=== PATIENT | male | born 1940 | race Caucasian/White ===

== ENCOUNTER → 2017-10-01 | Day surgery (SDC) | payer MEDICARE, OTHER ==
[~2017-10-01] MED LIST: ALEVE220 M1; ASPIRIN81 MG; CARAFATE1 GM/10 ML PO; COD LIVER OIL1 EAC1; DESOXIMETASONE15 G2 TOP; FENTANYL CITRATE/PF 100MCG/2 ML INJ ONE; FLAXSEED1000 MG; GARLIC; GLUCAGON FOR INJ 1 MG VIAL ONE; GLUCOSAMINE1000 MG; HYOSCYAMINE SULFATE 0.5 MG/ML AMP ONE; METOPROLOL TART50 MG PO; MIDAZOLAM HCL 2 MG/2 ML VIAL ONE; MULTI-VITAMIN1 EACH PO; NIZORAL120 ML BLADIN; ONDANSETRON HCL 4 MG ORAL DISINTEGRATING TAB ONE; PHENYLEPHRINE HCL 1% 10 MG/ML VIAL ONE; PROPOFOL IV EMULSION 10 MG/ML 50 ML VIAL ONE; TOPROL XL50 MG PO; VIT C; VITAMIN E400 UNI1; VYTORIN 10-801 EACH; ZANTAC150 MG; [UNRECOGNIZED DRUG - OTHER]
--- OUTSIDE RECORDS SUMMARY | 2017-10-01 07:54 | XMS REPORT | Clinical Summary ---
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 Disp. Refills Start End Date Status Date NAPROXEN SODIUM (ALEVE Take 1 tablet by mouth 2 Active ORAL) (two) times a day as needed. metoprolol succinate XL Take 50 mg by mouth Active (TOPROL-XL) 50 mg 24 hr daily. tablet ezetimibe-simvastatin Take 1 tablet by mouth Active (VYTORIN) 10-80 mg per nightly. tablet ketoconazole (NIZORAL) 2 Apply topically 3 (three) Active % shampoo times a week. Apply to damp skin, lather, leave on 5 minutes, and rinse DESOXIMETASONE TOP Apply topically 2 (two) Active times a day. .05% g, tro face and ear lobes niacin 50 MG tablet Take 50 mg by mouth daily Active with breakfast. aspirin (ECOTRIN) 81 MG Take 81 mg by mouth Active enteric coated tablet daily. sucralfate (CARAFATE) 1 Take 1 g by mouth 2 (two) Active gram tablet times a day. ranitidine (ZANTAC) 150 Take 150 mg by mouth Active MG tablet nightly as needed for heartburn. vitamin E 400 UNIT Take 400 Units by mouth Active capsule daily. ascorbic acid, vitamin C, Take 1,000 mg by mouth Active (VITAMIN C) 500 MG tablet daily. multivitamin (THERAGRAN) Take 1 tablet by mouth Active tablet daily. fluticasone (FLONASE) 50 2 sprays by Each Nare Active mcg/actuation nasal spray route daily as needed for rhinitis. Active Problems Problem Noted Date Coronary artery disease involving barrow coronary artery of barrow heart 04/2017 Encounters Date Type Specialty Care Team Description 04/17/2017 Patient Quality Concepcion Mckeon Outreach 04/14/2017 Hospital Cardiology Bianka Payne MD Coronary artery disease - Encounter involving barrow coronary 04/15/2017 artery of barrow heart, angina presence unspecified 04/14/2017 Procedure Pass Procedural Cardiology 04/14/2017 Surgery Procedural Cardiology Bianka Payne MD Cv left heart cath w lv gram cors [56738 (CPT )] after 09/30/2016 Family History Medical History Relation Name Comments No Known Problems Father Diabetes Mother Relation Name Status Comments Father Mother Social History Tobacco Use Types Packs/Day Years Used Date Current Every Day Smoker Cigars 2 Smokeless Tobacco: Chew Current User Tobacco Cessation: Ready to Quit: Yes Alcohol Use Drinks/Week oz/Week Comments Yes 2 glass weekly Sex Assigned at Date Recorded Not on file Last Filed Vital Signs Vital Sign Reading Time Taken Blood Pressure 145/73 04/15/2017 7:[address] OPERATOR Pulse 63 04/15/2017 7:[address] GRADER OPERATOR Temperature 36.2 C (97.2 F) 04/15/2017 7:[address] GRADER OPERATOR Respiratory Rate 20 04/15/2017 7:[address] GRADER OPERATOR Oxygen Saturation 95% 04/15/2017 7:[address] GRADER OPERATOR Inhaled Oxygen - - Concentration Weight 97.1 kg (214 lb) 04/14/2017 6:[address] GRADER OPERATOR Height 180.3 cm (5' 11") 04/14/2017 6:[address] GRADER OPERATOR Body Mass Index 29.85 04/14/2017 6:[address] GRADER OPERATOR Plan of Treatment Not on file Procedures Procedure Name Priority Date/Time Associated Diagnosis Comments CV LEFT HEART CATH LV Routine 04/14/2017 Coronary artery disease Results for this GRAM WITH CORS 10:[address] GRADER OPERATOR involving barrow coronary procedure are in the artery of barrow heart, results section. angina presence unspecified after 09/30/2016 Results * Cv photographic laboratory technician procedure (04/14/2017 10:32 AM) Specimen Performing Laboratory [facility] [address] [place] [address] Narrative OPERATIVE REPORT PATIENT NAME: ARIC BUTLER ENCOUNTER NO: [id number] DATE OF : 1940 DATE OF ADMISSION: 04/14/2017 DATE OF OPERATION: 04/14/2017 SURGEON: BIANKA PAYNE MD ADMITTING PHYSICIAN: BIANKA PAYNE MD PROCEDURE: Left heart catheterization, left internal mammary and right internal mammary artery cannulation and LV gram. DESCRIPTION OF PROCEDURE: The patient was brought to the photographic laboratory technician.His left and right groins were prepared in normal sterile fashion.A 6-[place] Islander sheath was placed in his right common femoral artery according to the protocol.The first catheter developed was a Nohemi left catheter 6-[place] Islander.We placed a JL4 into the ostium of the left main.The left main was a large vessel, it gave off an LAD and a circumflex.The LAD had a very proximal 90% stenosis followed by a fairly large septal bioinformatics specialist and then there was complete occlusion of the LAD down little further midway down.There was one diagonal that was quite small in the proximal part where the septal bioinformatics specialist was taking off.The left circumflex artery was occluded.We then engaged with a David right catheter.We engaged the ostium of the right coronary artery.It was completely occluded after a short segment of the RCA.We then went up to find what looked like clips in the ramus, we engaged the right internal mammary artery.The right internal mammary artery was a nice big artery.It was anastomosed to what appeared to be a ramus or high OM.It had retrograde filling of what looked like a large dominant left circumflex vessel, it gave off the PDA.There was KIRTI 3 flow throughout the distribution of the left circumflex and the ELISABETH graft appeared normal.We then irrigated the ELISABETH.The ELISABETH attached to the LAD, it was a large vessel connected to an LAD, which retrograde filled the diagonal vessel.There were no significant problems with the ZUNIGA.We then went in with a pigtail catheter, we were able to get the EDP.EDP was registering a little bit high, it was 16 to 18 mmHg.The LVEF was 50% by LV gram.We then did a pullback and there was no hemodynamically significant aortic valve pathology.I suspect that the ischemic defect seen on his PET scan was probably this septal bioinformatics specialist.He is asymptomatic, however, so we will just treat medically for now.The patient will be discharged home the following day since he has had a history of bleeding in the past. [id number] Conf/ / Ref#: [id number] * ECG 12 lead (04/14/2017 6:13 AM) Component Value Ref Range Ventricular rate 59 Atrial rate 59 MA interval 292 QRSD interval 98 QT interval 406 QTC interval 401 P axis 1 46 QRS axis 1 4 T wave axis 63 EKG impression Sinus bradycardia with 1st degree AV block-Otherwise normal ECG-No previous ECGs available- Specimen Performing Laboratory [facility] [address] [place] [address] after 09/30/2016 Insurance Payer Benefit Subscriber ID Type Phone Address Plan / Group MEDICARE MEDICARE xxxxxxxxxx Medicare [place], [place] PART A AND B COMMERCIAL MISC MISC xxxxxx Commercial COMMERCIAL
[2017-10-01 09:00] LABS: BASOPHILS # (AUTO) 0.1 (0.0-0.1); BASOPHILS % 0.7 % (0.0-1.0); EOSINOPHILS # (AUTO) 0.2 (0.0-0.4); EOSINOPHILS % 1.6 % (0.0-6.0); HEMATOCRIT 43.6 % (38.2-49.6); HEMOGLOBIN 14.4 g/dL (14.0-18.0); LYMPHOCYTES # (AUTO) 2.2 (1.0-3.2); LYMPHOCYTES % 20.8 % (18.0-39.1); MEAN CORPUSCULAR HEMOGLOBIN 29.5 pg (28-32); MEAN CORPUSCULAR VOLUME 89.3 fL (81-99); MONOCYTES # (AUTO) 0.7 (0.2-0.8); MONOCYTES % 6.8 % (4.4-11.3); NEUTROPHILS # (AUTO) 7.5 (2.1-6.9); NEUTROPHILS % 69.8 % (38.7-80.0); PLATELET COUNT 294 x10e3/uL (140-360); RED BLOOD COUNT 4.88 x10e6/uL (4.3-5.7); RED CELL DISTRIBUTION WIDTH 13.9 % (11.7-14.4)
--- NOTE | 2017-10-01 14:10 | Operative Report ---
DATE OF PROCEDURE: October 01, 2017 REFERRING PHYSICIAN: Dr. Jason Fajardo PROCEDURES PERFORMED 1. Esophagogastroduodenoscopy with biopsies. 2. Colonoscopy with biopsy. INDICATIONS FOR EGD: Heartburn. INDICATIONS FOR COLONOSCOPY: Colorectal cancer screening and abnormal CT scan. MEDICATION: Patient was done under MAC. Please see anesthesiologist's note. PROCEDURE: With the patient in the left lateral decubitus position, the flexible fiberoptic Olympus gastroscope was introduced into the esophagus under direct visualization without any difficulty. There was some patchy erythema noted in the distal esophagus. A minute tongue of velvety red mucosa was noted to extend proximally from the GE junction. That was biopsied to rule out Carmona's. The scope was then advanced with ease into the stomach, and the mucosa overlying the antrum revealed some diffuse intense erythema, and biopsies were obtained and sent to stain for H. pylori. The mucosa overlying the body was somewhat atrophic, and biopsies were obtained to rule out atrophic gastritis. A minute polyp was noted in the body of the stomach and that was removed per the cold biopsy forceps. The pylorus was of normal contour and shape. It was intubated with ease. The scope was advanced all the way to the 2nd portion of the duodenum. The scope was then withdrawn slowly. Mucosa overlying the proximal 2nd portion and the duodenal bulb appeared to be within normal limits. The scope was then withdrawn back into the stomach. It was retroflexed. The mucosa overlying the fundus and the cardia appeared to be within normal limits. The scope was then straightened out. It was subsequently withdrawn. Patient tolerated the procedure well. IMPRESSION 1. Mild distal esophagitis. 2. Rule out Carmona's esophagus. 3. Rule out atrophic gastritis, biopsied obtained. 4. Gastric polyp, body, excised with cold biopsy forceps. PLAN: Follow up histology. Continue Carafate 1 g p.o. a.c. t.i.d. and H2 priti therapy. The patient was then turned around. After adequate lubrication of the anal canal, a flexible fiberoptic Olympus colonoscope was inserted into the rectum with ease and advanced all the way to the cecum. Prep overall was suboptimal with moderate amount of retained fecal material in the colon. No obvious obstructing or constricting lesions were noted. The scope was then withdrawn slowly. Whatever was visualized, the mucosa overlying the ascending and transverse grossly appeared to be within normal limits. Diverticular disease was noted to involve the descending and the sigmoid colon. There was a focal raised area in the midsigmoid colon that was biopsied. The rectum grossly appeared to be within normal limits. The scope was then retroflexed into the distal rectum and moderate size internal hemorrhoids were noted, none of which was actively bleeding. The scope was then straightened out. It was subsequently was withdrawn. Patient tolerated the procedure well. IMPRESSION 1. Suboptimal prep, but no obvious obstructing or constricting lesions. 2. Diverticulosis. 3. Focal raised area, sigmoid colon, biopsied. 4. Internal hemorrhoids, none actively bleeding. PLAN: Follow up histology. Initiate high-fiber and low-fat diet. Initiate high-fiber supplement. Timing of followup colonoscopy if necessary pending pathology report. Job#: [id number] RI cc:JASON FAJARDO MD
== END | disposition home or self-care (01) ==
LOC: OR 07:51
PROVIDERS: ATTEND Internal Medicine Gastroenterology
DX: R93.3 Abnormal findings on diagnostic imaging of other parts of digestive tract (principal); K31.7 Polyp of stomach and duodenum; K29.40 Chronic atrophic gastritis without bleeding; K21.0 Gastro-esophageal reflux disease with esophagitis; K22.8 Other specified diseases of esophagus; K57.30 Diverticulosis of large intestine without perforation or abscess without bleeding; K63.89 Other specified diseases of intestine; K59.00 Constipation, unspecified; K64.8 Other hemorrhoids; I25.810 Atherosclerosis of coronary artery bypass graft(s) without angina pectoris; I10 Essential (primary) hypertension; F17.290 Nicotine dependence, other tobacco product, uncomplicated; Z88.2 Allergy status to sulfonamides; Z79.82 Long term (current) use of aspirin; Z68.27 Body mass index [BMI] 27.0-27.9, adult; Z95.1 Presence of aortocoronary bypass graft
CPT/HCPCS: 36415; 43239; 45380; 85025; 88305; 88312; 93005; J1610; J1980; J2250; J2370